=== PATIENT | female | born 1980 | race Caucasian/White ===

== ENCOUNTER → 2022-05-19 13:04 | Outpatient (CLI) | payer OTHER, SELFPAY ==
--- NOTE | ~2022-05-19 | MR_ITS ---
EXAMINATION: MR knee RT wo con DATE: 05/19/2022 13:41 INDICATION: Right anterior knee pain since April, possibly old injury. TECHNIQUE: Magnetic resonance imaging (MRI) of the right knee was performed without intravenous contr ast. Sequences included axial PD-weighted FS FSE, coronal PD-weighted FSE and PD-weighted FS FSE, sag ittal PD-weighted FSE, and sagittal T2-weighted FS FSE. COMPARISON: None. FINDINGS: Medial compartment: Intact meniscus. Mild diffuse cartilage thinning without focal defect. Lateral compartment: Intact meniscus. Mild diffuse cartilage thinning without focal defect. Patellofemoral compartment: Intact patellar cartilage. Retinacula intact. Ligaments and tendons: The ACL, PCL, MCL, and LCL are intact. The remaining flexor and extensor tendons are intact and maya l. Fluid: No abnormal fluid. Osseous/other: No suspicious focal or diffuse marrow signal. IMPRESSION: 1. Mild degenerative changes in the medial and lateral compartments. 2. Otherwise normal MR knee findings. Reviewed, dictated and finalized at location K. [facility]
== END ==
PROVIDERS: PCP Family Medicine; Visit Provider Orthopaedic Surgery
DX: M25.561 Pain in right knee (principal); G89.29 Other chronic pain
CPT/HCPCS: 73721